=== PATIENT | female | born 1995 | race Two or more races ===

== ENCOUNTER → 2025-07-06 09:08 | Outpatient (CLI) | payer OTHER | END | disposition home or self-care (01) | LOC: PRENATAL 09:08 | PROVIDERS: ATTEND Obstetrics & Gynecology Maternal & Fetal Medicine | DX: O44.02 Complete placenta previa NOS or without hemorrhage, second trimester (principal); O24.319 Unspecified pre-existing diabetes mellitus in pregnancy, unspecified trimester; O10.012 Pre-existing essential hypertension complicating pregnancy, second trimester; O34.32 Maternal care for cervical incompetence, second trimester; O99.212 Obesity complicating pregnancy, second trimester; Z3A.20 20 weeks gestation of pregnancy ==